=== PATIENT | male | born 1945 | race Caucasian/White ===

== ENCOUNTER 2017-10-15 16:32 | Emergency (ER) | payer MEDICARE ==
[2017-10-15 17:11] VITALS: BP 145/80; PULSE 90; RESP 16; TEMP 97.2; O2SAT 97
[2017-10-15] MEDS ORDERED: Lidocaine 5% Patch TD STA (18:18)
--- NOTE | 2017-10-15 18:24 | ED PDOC ---
HPI: Back Time Seen by Provider: 10/15/17 17:46 Chief Complaint (Nursing): Lower Extremity Problem/Injury Chief Complaint (Provider): back pain History Per: Patient History/Exam Limitations: no limitations Onset/Duration Of Symptoms: Days (4), Gradual, Persistent Current Symptoms Are (Timing): Still Present Severity: Moderate Additional Complaint(s): Radiates from RIGHT lumbar area to RIGHT buttock and posterior thigh. Seen by Dr Vance for same and no improvement with meds given. No bowel or urine retention or incontinence. No weight loss of night sweats. Past Medical History Vital Signs: Last Vital Signs Temp 97.2 F L 10/15/17 17:09 Pulse 90 10/15/17 17:09 Resp 16 10/15/17 17:09 BP 145/80 10/15/17 17:09 Pulse Ox 97 10/15/17 17:09 - Medical History PMH: Benign Prostatic Hyperplasia - Family History Family History: States: Unknown Family Hx, [place] (mother at 83 y/o) - Home Medications Home Medications: Ambulatory Orders Medication Instructions Recorded Aspirin 81 mg PO DAILY #0 tab 05/14/16 Silodosin [Rapaflo] 4 mg PO QOTHERDAY #0 capsule 05/14/16 Diazepam [Valium] 2 mg PO HS PRN #5 tab 10/15/17 Lidocaine 5% [Lidoderm] 1 ea TD DAILY PRN #30 patch 10/15/17 - Allergies Allergies/Adverse Reactions: Allergies Allergy/AdvReac Type Severity Reaction Status Date / Time No Known Allergies Allergy Verified 10/15/17 17:08 - ECG O2 Sat by Pulse Oximetry: 97 Pulse Ox Interpretation: Normal - Other Rad LS spine X-Ray: Interpreted by Me (No fx/dislocation) - Progress Re-evaluation Time: 20:09 Condition: Improving,but remains with symptoms Disposition - Clinical Impression Clinical Impression: Lumbar radiculopathy - Disposition Referrals: Reid Vance MD [Family Provider] - 10/17/17 Disposition: Routine/Home Disposition Time: 20:00 Condition: GOOD Prescriptions: Diazepam [Valium] 2 mg PO HS PRN #5 tab PRN Reason: TAKE AT NIGHT FOR SEVERE CRAMP Lidocaine 5% [Lidoderm] 1 ea TD DAILY PRN #30 patch PRN Reason: PAIN Instructions: Lumbar Radiculopathy (ED) Forms: [employer] (Amharic)
[2017-10-15] MEDS ORDERED: Lidocaine 5% Patch TD ONE (18:29)
--- NOTE | 2017-10-16 11:38 | RAD ---
PROCEDURE: Radiographs of the Lumbar Spine. HISTORY: RIGHT lumbar pain COMPARISON: No prior. FINDINGS: BONES: There is straightening of lumbar curvature without fracture or spondylolisthesis identified. No destructive bony lesion is appreciated. DISC SPACES: Normal intervertebral disc heights are identified however there is prominent endplate sclerosis seen diffusely with gross spondylosis seen throughout the lumbar spine though L5-S1 is mildly spared. OTHER FINDINGS: None. IMPRESSION: Advanced multilevel lumbar spondylosis without fracture or spondylolisthesis or straightened lumbar curvature identified.
== END 2017-10-15 20:21 | disposition home or self-care (01) ==
LOC: H.ER 16:32
DX: M54.16 Radiculopathy, lumbar region (principal); N40.0 Benign prostatic hyperplasia without lower urinary tract symptoms; Z79.82 Long term (current) use of aspirin
CPT/HCPCS: 72100; 96372; 99283; J1885

== ENCOUNTER 2017-10-25 04:06 | Emergency (ER) | payer MEDICARE ==
[2017-10-25 04:19] VITALS: BP 129/78; PULSE 71; RESP 18; TEMP 98.9; O2SAT 99
--- NOTE | 2017-10-25 04:56 | ED PDOC ---
HPI: Chest Pain Time Seen by Provider: 10/25/17 04:20 Chief Complaint (Nursing): Chest Pain Chief Complaint (Provider): Chest Tightness History Per: Patient History/Exam Limitations: no limitations Onset/Duration Of Symptoms: Hrs (x2) Current Symptoms Are (Timing): Still Present Additional Complaint(s): Josafat Macias is a 71 year old male with a history of chronic back pain, lumbar radiculopathy, and BPH that presents to the ED with a chief complaint of right leg pain, lower back pain, and chest pain that he has been experiencing for the past two hours. Patient states that his pain became very severe and that he developed a sense of chest tightness. He reports that his symptoms have largely resolved at this point, but his concern prompted him to come to the ED. He denies any nausea, vomiting, or diaphoresis. Of Note: Patient was seen for the same pain 10 days ago, and had a negative workup at the time. He reports that he was prescribed Lidoderm patches, which he has taken. Past Medical History Reviewed: Historical Data, Nursing Documentation, Vital Signs Vital Signs: Last Vital Signs Temp 98.9 F 10/25/17 04:16 Pulse 71 10/25/17 04:16 Resp 18 10/25/17 04:16 BP 129/78 10/25/17 04:16 Pulse Ox 99 10/25/17 04:58 - Medical History PMH: Benign Prostatic Hyperplasia - Family History Family History: States: Unknown Family Hx, [place] (mother at 83 y/o) - Home Medications Home Medications: Ambulatory Orders Medication Instructions Recorded Aspirin 81 mg PO DAILY #0 tab 05/14/16 Silodosin [Rapaflo] 4 mg PO QOTHERDAY #0 capsule 05/14/16 Diazepam [Valium] 2 mg PO HS PRN #5 tab 10/15/17 Lidocaine 5% [Lidoderm] 1 ea TD DAILY PRN #30 patch 10/15/17 - Allergies Allergies/Adverse Reactions: Allergies Allergy/AdvReac Type Severity Reaction Status Date / Time No Known Allergies Allergy Verified 10/15/17 17:08 Review of Systems Cardiovascular: Positive for: Chest Pain (chest tightness) Musculoskeletal: Positive for: Back Pain (lower), Leg Pain (right) Physical Exam - Reviewed Nursing Documentation Reviewed: Yes Vital Signs Reviewed: Yes - Physical Exam Appears: Positive for: Non-toxic, No Acute Distress Head Exam: Positive for: ATRAUMATIC, NORMOCEPHALIC Skin: Positive for: Normal Color, Warm Eye Exam: Positive for: Normal appearance, EOMI, PERRL Cardiovascular/Chest: Positive for: Regular Rate, Rhythm. Negative for: Murmur Respiratory: Positive for: Normal Breath Sounds. Negative for: Wheezing Gastrointestinal/Abdominal: Positive for: Normal Exam, Soft. Negative for: Tenderness Back: Positive for: Normal Inspection. Negative for: L CVA Tenderness, R CVA Tenderness Extremity: Positive for: Normal ROM. Negative for: Tenderness, Pedal Edema, Deformity Neurologic/Psych: Positive for: Alert, Oriented. Negative for: Motor/Sensory Deficits - Laboratory Results Result Diagrams: 10/25/17 05:00 10/25/17 05:00 - ECG O2 Sat by Pulse Oximetry: 99 (RA) Pulse Ox Interpretation: Normal Medical Decision Making Medical Decision Making: Impression: 71 year old male with chest tightness Plan: * EKG * CMP * CBC * Troponin I * Reevaluation 6:00 Labs reviewed, no clinically significant abnormalities. Patient has been asymptomatic in ED and is advised to follow up with PMD. Patient is stable for discharge home. Clinical Impression: Atypical Chest Pain and Lumbar Radiculopathy Scribe Attestation: Documented by Nuria Lundy, acting as a scribe for Jose Hampton MD. Provider Scribe Attestation: All medical record entries made by the Scribe were at my direction and personally dictated by me. I have reviewed the chart and agree that the record accurately reflects my personal performance of the history, physical exam, medical decision making, and the department course for this patient. I have also personally directed, reviewed, and agree with the discharge instructions and disposition. Disposition - Clinical Impression Clinical Impression: Atypical chest pain, Lumbar radiculopathy - Patient ED Disposition Is Patient to be Admitted: No - Disposition Referrals: Reid Hendrickson MD [Primary Care Provider] - Disposition: Routine/Home Disposition Time: 06:00 Condition: STABLE Instructions: Noncardiac Chest Pain (ED) Forms: [employer] (Samoan)
[2017-10-25 05:16] LABS: BASO # 0.1 K/uL (0.0-0.2); BASO % 0.7 % (0.0-2.0); EOS # 0.7 K/uL (0.0-0.7); EOS % 6.6 % (0.0-4.0); HEMATOCRIT 43.2 % (35.0-51.0); LYMPH # 3.5 K/uL (1.0-4.3); LYMPH % 30.7 % (20.0-40.0); MEAN CELL VOLUME 81.2 fl (80.0-94.0); MEAN CORPUSCULAR HEMOGLOBIN 25.9 pg (27.0-31.0); MEAN PLATELET VOLUME 7.4 fl (7.2-11.7); MONO # 0.9 K/uL (0.0-0.8); MONO % 7.9 % (0.0-10.0); NEUT # 6.2 K/uL (1.8-7.0); NEUT % 54.1 % (50.0-75.0); RED CELL DISTRIBUTION WIDTH 14.6 % (11.5-14.5); WHITE BLOOD COUNT 11.4 K/uL (4.8-10.8)
[2017-10-25 05:17] LABS: ALB/GLOB RATIO 1.1 (1.0-2.1); ALKALINE PHOSPHATASE 59 U/L (38-126); ALT/SGPT 38 U/L (21-72); AST/SGOT 21 U/L (17-59); BILIRUBIN,TOTAL 0.7 mg/dl (0.2-1.3); BLOOD UREA NITROGEN 21 mg/dl (9-20); CALCIUM 9.2 mg/dL (8.4-10.2); CARBON DIOXIDE 27 mmol/L (22-30); CHLORIDE 105 mmol/L (98-107); GFR AFRICAN-AMERICAN > 60; GLUCOSE,RANDOM 90 mg/dL (75-110); POTASSIUM 4.7 MMOL/L (3.6-5.0); SODIUM 142 mmol/l (132-148); TOTAL PROTEIN 7.7 G/DL (6.3-8.2)
--- NOTE | 2017-10-25 10:27 | CARD ---
APPROVED REPORT EKG Measurement Heart [id number] <Conclusion> Normal sinus rhythm Normal ECG
== END 2017-10-25 06:55 | disposition home or self-care (01) ==
LOC: H.ER 04:06
DX: R07.89 Other chest pain (principal); M54.16 Radiculopathy, lumbar region; G89.29 Other chronic pain; N40.0 Benign prostatic hyperplasia without lower urinary tract symptoms; Z79.82 Long term (current) use of aspirin